=== PATIENT | male | born 1950 | race Caucasian/White ===

== ENCOUNTER 2017-12-02 14:33 | Emergency (ER) | payer OTHER, MEDICARE, BC ==
[2017-12-02 14:39] VITALS: BP 151/81
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
== END 2017-12-02 16:11 | disposition home or self-care (01) ==
LOC: ER 14:33
DX: T14.8XXA Other injury of unspecified body region, initial encounter (principal); M54.6 Pain in thoracic spine; V63.9XXA Unspecified occupant of heavy transport vehicle injured in collision with car, pick-up truck or van in traffic accident, initial encounter; Z87.891 Personal history of nicotine dependence
CPT/HCPCS: 99283; 72050; 72070; L0120

== ENCOUNTER 2018-03-27 16:21 | Emergency (ER) | payer MEDICARE, BC ==
[2018-03-27] MEDS ORDERED: DIPH/PERTUSS(ACELL)/TETANUS VAC/PF 0.5 ML SYR (>=10YO) IM ONE (17:09)
[2018-03-27] MEDS ORDERED: LIDOCAINE 4%/TETRACAINE 0.5%/EPI 0.18% 5 ML TOPICAL SOLN TOP ONE (17:09)
--- NOTE | 2018-03-27 17:11 | ER Document Report ---
ED Medical Screen (RME) - General Chief Complaint: Laceration Stated Complaint: FINGER INJURY Time Seen by Provider: 03/27/18 17:05 TRAVEL OUTSIDE OF THE [place] IN LAST 30 DAYS: No - HPI Patient complains to provider of: finger injury Onset: Other - Right-hand dominant 68-year-old generally healthy man who presents for evaluation of an injury to the tip of his right finger index. He cut it on a fan while working on a furnace. Thinks that his tetanus has been updated approximately 10 years prior. Has had a arthroscopic surgery on his shoulder as well as his back. - Related Data Allergies/Adverse Reactions: No Known Allergies Allergy (Verified 03/27/18 17:09) Past Medical History - Social History Chew tobacco use (# tins/day): No Frequency of alcohol use: Social Drug Abuse: None - Past Medical History Cardiac Medical History: Reports: Hx Hypertension Renal/ Medical History: Denies: Hx Peritoneal Dialysis Past Surgical History: Reports: Hx Cholecystectomy, Hx Orthopedic Surgery - back Physical Exam - Vital signs Vitals: Temp Pulse Resp BP Pulse Ox 98.1 F 70 20 138/87 H 97 03/27/18 16:56 03/27/18 16:56 03/27/18 16:56 03/27/18 16:56 03/27/18 16:56 Course - Re-evaluation Re-evalutation: 03/27/18 17:10 Gentleman with an injury to the tip of his finger while attempting to repair something. I have greeted and performed a rapid initial assessment of this patient. A comprehensive ED assessment and evaluation of the patient, analysis of test results and completion of the medical decision making process will be conducted by additional ED providers - Vital Signs Vital signs: Temp Pulse Resp BP Pulse Ox 98.1 F 70 20 138/87 H 97 03/27/18 16:56 03/27/18 16:56 03/27/18 16:56 03/27/18 16:56 03/27/18 16:56 Doctor's Discharge - Discharge Referrals: RANDELL ALAN MD [Primary Care Provider] - Follow up as needed
[2018-03-27] MEDS ORDERED: LIDOCAINE 1% INJ-PF (10 MG/ML) 30 ML SDV INJ ONE (17:59)
--- NOTE | 2018-03-27 18:00 | ER Document Report ---
ED Wound - General Chief Complaint: Laceration Stated Complaint: FINGER INJURY Time Seen by Provider: 03/27/18 17:05 Notes: 68-year-old male to the emergency department for evaluation of laceration. Patient was working on a fan squirrel cage when his finger got sliced. No other injuries. Patient is right-hand dominant. Uncertain when his last tetanus was given. No allergies. Mild amount of bleeding but it was controlled with direct pressure. Injury occurred to the second digit on the right hand of the distal tip. Part of his fingernail is missing. TRAVEL OUTSIDE OF THE [place] IN LAST 30 DAYS: No - HPI Patient complains to provider of: Laceration Occurred: Just prior to arrival Onset/Duration: Sudden - Related Data Allergies/Adverse Reactions: No Known Allergies Allergy (Verified 03/27/18 17:09) Past Medical History - General Information source: Patient - Social History Smoking Status: Former Smoker Chew tobacco use (# tins/day): No Frequency of alcohol use: Social Drug Abuse: None Lives with: Spouse/Significant other Family History: Reviewed & Not Pertinent Patient has suicidal ideation: No Patient has homicidal ideation: No - Past Medical History Cardiac Medical History: Reports: Hx Hypertension Renal/ Medical History: Denies: Hx Peritoneal Dialysis Past Surgical History: Reports: Hx Cholecystectomy, Hx Orthopedic Surgery - back Review of Systems - Review of Systems Constitutional: denies: Fever, Malaise, Weakness EENT: denies: Blurred vision, Double vision Cardiovascular: denies: Chest pain, Palpitations, Heart racing Respiratory: denies: Cough, Short of breath, Wheezing Musculoskeletal: See HPI, Other - Second digit right hand pain and laceration Skin: See HPI, Other - Laceration to the second digit distal tip right hand Physical Exam - Vital signs Vitals: Temp Pulse Resp BP Pulse Ox 98.1 F 70 20 138/87 H 97 03/27/18 16:56 03/27/18 16:56 03/27/18 16:56 03/27/18 16:56 03/27/18 16:56 Interpretation: Normal - Respiratory Respiratory status: No respiratory distress Chest status: Nontender Breath sounds: Normal Chest palpation: Normal - Cardiovascular Rhythm: Regular Heart sounds: Normal auscultation Murmur: No - Extremities General upper extremity: Normal ROM, Normal strength, Normal temperature, Other - There is a 1-1/2 cm laceration at the distal tip of the second digit of the right hand. Partial nail avulsion. No exposed tendon. No exposed bone. Neurovascularly intact. General lower extremity: Normal inspection, Normal weight bearing - Neurological Neuro grossly intact: Yes Cognition: Normal Orientation: AAOx4 Sensory: Normal - Skin Skin Temperature: Warm Skin Moisture: Dry Skin Color: Normal, Other - 1/2 cm laceration to the distal tip of the second digit of the right hand. Course - Re-evaluation Re-evalutation: 03/27/18 23:11 he has a tuft fracture with laceration technically open fracture. Irrigated with a liter of normal saline and explored. No foreign bodies. Laceration was repaired. Antibiotics given. Tetanus updated. Pain medication given. Follow- up information given for orthopedic surgery. Discharged in stable condition. 03/27/18 23:13 Finger X-Ray 03/27/18 17:59 IMPRESSION: Index finger soft tissue injury with underlying tuft fracture - Vital Signs Vital signs: Temp Pulse Resp BP Pulse Ox 97.7 F 68 16 143/87 H 97 03/27/18 19:22 03/27/18 19:22 03/27/18 19:22 03/27/18 19:22 03/27/18 19:22 Procedures - Laceration/Wound Repair Right Distal Finger 2nd digit Wound length (cm): 1.5 Wound's Depth, Shape: Flap, Nail-avulsed, Contused tissue Laceration pre-procedure: Betadine prep applied, Chloraprep applied, Shur-Clens applied Anesthetic type: 1% Lidocaine Volume Anesthetic (mLs): 8 - Digital block performed on the second digit of the right hand Wound explored: Clean, No foreign body removed Irrigated w/ Saline (mLs): 1,000 Wound Repaired With: Sutures Suture Size/Type: 4:0, Prolene Number of Sutures: 7 Post-procedure wound care: Sterile dressing applied Post-procedure NV exam normal: Yes Complications: No Discharge - Discharge Clinical Impression: Open fracture of tuft of distal phalanx of finger, Laceration Condition: Good Disposition: HOME, SELF-CARE Instructions: Laceration Care ([facility]), Open Finger Tuft Fracture ([facility]), Prophylactic Antibiotic ([facility]), Tetanus Immunization Given ([facility]) Additional Instructions: Return in 10 days for suture removal. Keep clean and dry for the next 24 hours. Prescriptions: Cephalexin Monohydrate [Keflex 500 mg Capsule] 500 mg PO Q6H 7 Days #28 capsule Referrals: RANDELL ALNA MD [Primary Care Provider] - Follow up as needed JENNY SHI MD [ACTIVE STAFF] - Follow up in 3-5 days
[2018-03-27] MEDS ORDERED: ONDANSETRON 4 MG TAB.RAPDIS PO ONE (18:25)
[2018-03-27] MEDS ORDERED: CEPHALEXIN 500 MG CAPSULE PO ONE (18:25)
[2018-03-27] MEDS ORDERED: HYDROCODONE/ACETAMINOPHEN 5-325 MG TABLET PO ONE (18:25)
--- NOTE | 2018-03-27 18:34 | RADIOLOGY REPORT (SQ) ---
EXAM DESCRIPTION: FINGER RIGHT COMPLETED DATE/TIME: 03/27/2018 6:20 pm REASON FOR STUDY: laceration to tip COMPARISON: None. NUMBER OF VIEWS: Three views. TECHNIQUE: AP, lateral, and oblique images acquired of the right second finger. LIMITATIONS: None. FINDINGS: MINERALIZATION: Normal. BONES: Tuft fracture of the 2nd digit. SOFT TISSUES: Soft tissue defect overlying the injury site. OTHER: No other significant finding. IMPRESSION: Index finger soft tissue injury with underlying tuft fracture COMMENT: SITE OF TRAUMA/COMPLAINT MARKED/STAMP COMPLETED: Yes TECHNICAL DOCUMENTATION: JOB ID: [id number] [employer]- All Rights Reserved Reading location - IP/workstation name: [email or web address]
[2018-03-27 19:22] VITALS: BP 143/87
[2018-03-27] MEDS ORDERED: HYDROCODONE/ACETAMINOPHEN 5-325 MG (6 TAB/ER DISP) PO PRN (20:12)
== END 2018-03-27 20:26 | disposition home or self-care (01) ==
LOC: ER 16:21
PROC: 0HQFXZZ Repair Right Hand Skin, External Approach (ICD-10-PCS; principal; 2018-03-27)
DX: S62.630B Displaced fracture of distal phalanx of right index finger, initial encounter for open fracture (principal); W45.8XXA Other foreign body or object entering through skin, initial encounter; Z87.891 Personal history of nicotine dependence; I10 Essential (primary) hypertension
CPT/HCPCS: 99283; 90471; 73140; 90715; 12001; A9270 ×4; J3490; S0119